=== PATIENT | female | born 1985 | race African-American/Black ===

== ENCOUNTER 2021-06-11 09:20 | Outpatient (CLI) | payer OTHER | END 2021-06-11 09:21 | disposition home or self-care (01) | LOC: DTY/OP 09:20 | PROVIDERS: ATTEND Surgery | DX: E66.01 Morbid (severe) obesity due to excess calories (principal) | CPT/HCPCS: 97802 ==

== ENCOUNTER 2021-08-17 09:47 | Outpatient (CLI) | payer OTHER | END 2021-08-17 09:48 | disposition home or self-care (01) | LOC: DTY/OP 09:47 | PROVIDERS: ATTEND Surgery | DX: E66.01 Morbid (severe) obesity due to excess calories (principal) | CPT/HCPCS: 97802 ==

== ENCOUNTER 2021-09-15 09:54 | Outpatient (CLI) | payer OTHER | END 2021-09-15 09:55 | disposition home or self-care (01) | LOC: DTY/OP 09:54 | PROVIDERS: ATTEND Surgery | DX: E66.01 Morbid (severe) obesity due to excess calories (principal) | CPT/HCPCS: 97802 ==

== ENCOUNTER 2021-10-13 15:22 | Outpatient (CLI) | payer OTHER | END 2021-10-13 15:23 | disposition home or self-care (01) | LOC: DTY/OP 15:22 | PROVIDERS: ATTEND Surgery | DX: E66.01 Morbid (severe) obesity due to excess calories (principal) | CPT/HCPCS: 97802 ==

== ENCOUNTER 2021-11-11 10:50 | Outpatient (CLI) | payer OTHER | END 2021-11-11 10:51 | disposition home or self-care (01) | LOC: DTY/OP 10:50 | PROVIDERS: ATTEND Surgery | DX: E66.01 Morbid (severe) obesity due to excess calories (principal) | CPT/HCPCS: 97802 ==

== ENCOUNTER 2022-01-05 12:27 | Day surgery (SDC) | payer MEDICAID ==
[2022-01-05] MEDS ORDERED: SODIUM CHLORIDE 0.9% IVPB SCH (12:45)
[2022-01-05] MEDS ORDERED: FERUMOXYTOL IVPB SCH (12:45)
[2022-01-05] MEDS ORDERED: Acetaminophen 500 MG TAB PO SCH (12:45)
[2022-01-05] MEDS ORDERED: Acetaminophen 500 MG TAB ONE ×2 (13:22)
[2022-01-05 15:11] VITALS: TEMP 98.6
[2022-01-05 15:12] VITALS: BP 125/63
== END 2022-01-05 15:18 | disposition home or self-care (01) ==
LOC: ONC/OP 12:27
PROVIDERS: ATTEND Family Medicine
DX: K90.9 Intestinal malabsorption, unspecified (principal)
CPT/HCPCS: 96365; J7050; Q0139

== ENCOUNTER 2022-02-04 13:10 | Outpatient (CLI) | payer MEDICAID | END 2022-02-04 13:11 | disposition home or self-care (01) | LOC: RAD 13:10 | PROVIDERS: ATTEND Internal Medicine | DX: R06.00 Dyspnea, unspecified (principal); R68.89 Other general symptoms and signs | CPT/HCPCS: 71046 ==